=== PATIENT | female | born 1995 | race Caucasian/White ===

== ENCOUNTER → 2016-11-06 | Outpatient (CLI) | payer OTHER ==
[~2016-11-06] MED LIST: COLACE100 MG PO; IBUPROFEN600 MG PO; LABETALOL HCL300 MG PO; NORCO 5-325 TA1 EACH PO
[2016-11-06 11:24] LABS: HEMOGLOBIN 13.3 gm/dl (12.3-15.3); RED BLOOD COUNT 4.74 M/UL (4.00-5.10)
[2016-11-06 11:41] LABS: BUN/CREATININE RATIO 20 (0-10)
== END ==
LOC: LAB 10:51
PROVIDERS: Nurse Practitioner
DX: R53.83 Other fatigue (principal); E78.5 Hyperlipidemia, unspecified; E55.9 Vitamin D deficiency, unspecified; M54.5 Low back pain
CPT/HCPCS: 36415; 72110; 80053; 80061; 84436; 84443; 84480; 84703; 85025; 86140

== ENCOUNTER 2016-11-27 02:18 | Emergency (ER) | payer OTHER | END 2016-11-27 03:36 | disposition left against medical advice (07) | LOC: ER1 02:18 | DX: R06.02 Shortness of breath (principal); R10.9 Unspecified abdominal pain; I10 Essential (primary) hypertension; Z88.8 Allergy status to other drugs, medicaments and biological substances | CPT/HCPCS: 36415; 81001; 84703; 87086; 99285 ==

== ENCOUNTER 2020-09-22 22:58 | Outpatient (CLI) | payer OTHER ==
[2020-09-23 00:56] LABS: RED BLOOD COUNT 4.83 M/UL (4.00-5.10); WHITE BLOOD COUNT 14.3 K/UL (4.5-11.0)
[2020-09-23] MEDS ORDERED: LABETALOL HCL300 MG PO (10:00)
[2020-09-23] MEDS ORDERED: BACTRIM DS TAB1 EACH PO (10:00)
== END 2020-09-23 10:36 | disposition home or self-care (01) ==
LOC: GENOP 22:58
PROVIDERS: Obstetrics & Gynecology
DX: O14.93 Unspecified pre-eclampsia, third trimester (principal); O26.853 Spotting complicating pregnancy, third trimester; O21.2 Late vomiting of pregnancy; Z3A.34 34 weeks gestation of pregnancy
CPT/HCPCS: 81001; 82247; 82248; 82565; 82570; 84156; 84450; 84460; 84550; 85025; 85379; 85384; 85610; 85730; 96360; 96361; 96365; 96372; J0690; J0702

== ENCOUNTER 2020-09-24 09:54 | Outpatient (CLI) | payer OTHER ==
[~2020-09-24 09:54] MED LIST changes: +BACTRIM DS TAB1 EACH PO
== END 2020-09-24 10:36 | disposition home or self-care (01) ==
LOC: GENOP 09:54
DX: O09.90 Supervision of high risk pregnancy, unspecified, unspecified trimester (principal)
CPT/HCPCS: 96372; J0702

== ENCOUNTER 2020-09-28 10:39 | Inpatient (IN) | payer OTHER ==
[2020-09-28 11:41] LABS: RED BLOOD COUNT 4.41 M/UL (4.00-5.10); WHITE BLOOD COUNT 10.4 K/UL (4.5-11.0)
[2020-09-28 22:05] LABS: HEMOGLOBIN 12.8 gm/dl (12.3-15.3); RED BLOOD COUNT 4.39 M/UL (4.00-5.10); WHITE BLOOD COUNT 11.6 K/UL (4.5-11.0)
[2020-09-28 22:27] LABS: BUN/CREATININE RATIO 15 (0-10)
[2020-09-29 09:30] LABS: HEMOGLOBIN 12.9 gm/dl (12.3-15.3); RED BLOOD COUNT 4.35 M/UL (4.00-5.10); WHITE BLOOD COUNT 11.3 K/UL (4.5-11.0)
[2020-09-29 13:17] LABS: URINE TOTAL PROTEIN 9 mg/dl
== END 2020-09-29 20:55 | disposition home or self-care (01) | DRG 833 ==
LOC: GENOP 10:39 → OB 10:58
PROVIDERS: Obstetrics & Gynecology; ADMIT Obstetrics & Gynecology
PROC: 4A1HX4Z Monitoring of Products of Conception, Cardiac Electrical Activity, External Approach (ICD-10-PCS; principal; 2020-09-28)
DX: O10.913 Unspecified pre-existing hypertension complicating pregnancy, third trimester (principal); Z3A.28 28 weeks gestation of pregnancy; E03.9 Hypothyroidism, unspecified; O24.410 Gestational diabetes mellitus in pregnancy, diet controlled; Z88.8 Allergy status to other drugs, medicaments and biological substances; Z91.030 Bee allergy status; Z20.822 Contact with and (suspected) exposure to COVID-19
CPT/HCPCS: 36415; 80053; 81001; 82247; 82248; 82565; 82570; 84156; 84450; 84460; 84550; 85025; 85379; 85384; 85610; 85730; 94640; 94664; 94760; 96372; 96374; J0360; U0002

== ENCOUNTER 2020-10-30 19:54 | Outpatient (CLI) | payer OTHER ==
[2020-10-30 21:03] LABS: HEMOGLOBIN 13.7 gm/dl (12.3-15.3); RED BLOOD COUNT 4.59 M/UL (4.00-5.10); WHITE BLOOD COUNT 10.8 K/UL (4.5-11.0)
[2020-10-30 21:22] LABS: BUN/CREATININE RATIO 23 (0-10)
== END 2020-10-31 01:21 | disposition left against medical advice (07) ==
LOC: GENOP 19:54
PROVIDERS: Obstetrics & Gynecology
DX: O13.3 Gestational [pregnancy-induced] hypertension without significant proteinuria, third trimester (principal); Z3A.33 33 weeks gestation of pregnancy
CPT/HCPCS: 36415; 80053; 81001; 82570; 84156; 85025; 96374; 96375

== ENCOUNTER 2020-11-07 14:22 | Outpatient (CLI) | payer OTHER ==
[2020-11-07 15:12] LABS: HEMOGLOBIN 13.9 gm/dl (12.3-15.3); RED BLOOD COUNT 4.69 M/UL (4.00-5.10); WHITE BLOOD COUNT 10.8 K/UL (4.5-11.0)
[2020-11-07 15:33] LABS: BUN/CREATININE RATIO 14 (0-10)
== END 2020-11-07 18:06 | disposition other institution (70) ==
LOC: GENOP 14:22
PROVIDERS: Obstetrics & Gynecology
DX: O11.3 Pre-existing hypertension with pre-eclampsia, third trimester (principal); O10.913 Unspecified pre-existing hypertension complicating pregnancy, third trimester; O99.283 Endocrine, nutritional and metabolic diseases complicating pregnancy, third trimester; E03.9 Hypothyroidism, unspecified; O99.891 Other specified diseases and conditions complicating pregnancy; R51.9 Headache, unspecified; Z91.030 Bee allergy status; Z88.8 Allergy status to other drugs, medicaments and biological substances; Z3A.34 34 weeks gestation of pregnancy
CPT/HCPCS: 36415; 51702; 59025; 80053; 81001; 82570; 83615; 84156; 84550; 85025; 96360; 96361; 96367; 96368; 96372; 96374; C9113; J0360; J0702; J1200; J2405; J2550; J3475; J7120